=== PATIENT | female | born 1955 | race Caucasian/White ===

== ENCOUNTER → 2018-07-24 | Outpatient (CLI) | payer MEDICARE, OTHER ==
[2018-07-24 16:52] LABS: Potassium 4.6 mmol/L (3.5-5.1)
[2018-07-24 17:02] LABS: Basophils % (A) 0 %; Eosinophils # (A) 0.2 k/uL (0-0.7); Eosinophils % (A) 3 %; HCT 37.6 % (34.0-46.0); HGB 12.4 gm/dL (11.4-16.0); Lymphocytes # (A) 1.8 k/uL (1.0-4.8); Lymphocytes % (A) 33 %; MCH 28.1 pg (25.0-35.0); MCV 85.1 fL (80.0-100.0); Mean Platelet Volume 6.9; Monocytes # (A) 0.3 k/uL (0-1.0); Monocytes % (A) 6 %; Neutrophils % (A) 55 %; Platelet Count 209 k/uL (150-450); RBC 4.42 m/uL (3.80-5.40); RDW 13.8 % (11.5-15.5); WBC 5.4 k/uL (3.8-10.6)
== END | disposition home or self-care (01) ==
LOC: LABPAT 15:56
PROVIDERS: ATTEND Orthopaedic Surgery
DX: Z01.818 Encounter for other preprocedural examination (principal); Z01.812 Encounter for preprocedural laboratory examination; M23.91 Unspecified internal derangement of right knee
CPT/HCPCS: 36415; 80051; 85025; 93005

== ENCOUNTER → 2022-04-07 | Outpatient (CLI) | payer MEDICARE, OTHER ==
--- NOTE | 2022-04-07 11:09 | P.PAINPG ---
PQRS Measure Charge Sheet Comment: HISTORY OF PRESENT ILLNESS: 67 yr old female as a referral from Dr. Myers presents today with severe and chronic LBP secondary to DDD and facet arthropathy for evaluation. Pt states her pain level is 8 out of 10 in intensity, localized to the left aspect of her lower lumbar spine, constant, sharp, stabbing in character which is provoked with sitting for periods of 30 minutes or more. So radiates to the inner groin. Pain is relieved with medications (Tylenol), lidocaine patches, ice, heat, physical therapy 2 years ago, daily home stretching regimen, repositioning and rest. PMH: Asthma, GERD, Vitamin D Deficiency PSH: R Knee Meniscal Repair, R Extensor Tendon Repair SH: Hx of tobacco use, No ETOH abuse, No illicit drug use. Retired. FH: Mother- [place]. Father- CAD, NIDDM, [place]. All: See list Meds: See list REVIEW OF ORGAN SYSTEMS: CONSTITUTIONAL: No fevers or chills. No recent weight loss. NEUROLOGICAL: + numbness and tingling along the distal extremities. No seizure disorders or headaches. MUSCULOSKELETAL: + pain PSYCHIATRIC: Denies current depression or suicidal thoughts. Physical Examinations : Constitutional : Cooperative , not in acute distress . Neurologic : Cranial nerve II to XII intact. No focal neurological deficits. Psychiatric : alert & oriented x 3. Matching mood & appropriate affect. Judgment & insight intact. Musculoskeletal : Cervical Spine Motor strength in the deltoid and biceps: Normal right side. Normal Left side Motor strength biceps and the wrist extensors: Normal right side . Normal left side Motor strength in the triceps muscle: Normal right side. Normal left side Deep tendon reflexes: Normal at the biceps. Normal at Brachioradialis. Normal at triceps Vertebral body tenderness to deep palpation over Cervical facet loading test: positive bilaterally Spurling test: positive bilaterally Neck distraction test: positive bilaterally Kevin sign: positive bilaterally Lumbar spine Motor strength lower extremities ,thigh and legs 5/5 Right side , 5/5 Left side Deep tendon reflexes : Normal Knee Jerk. Normal Ankle Jerk Vertebral body tenderness over Lumbar facet Loading Test: positive Right / positive Left Range of motion of the lumbar spine Flexion 30 degrees, extension 10 degrees Straight Leg Raise test: Left/ Right positive at degree Monica test: positive right / positive left. Severe tenderness over the Sacroiliac joint on the Right / Left sides Gaenslen test: positive bilaterally Seated flexion test: positive bilaterally. Sacral spine : Severe tenderness over the Sacroiliac joint: right side / left side Range of motion: Flexion of the lumbar spine <60 degrees Range of motion: Extension of the lumbar spine <20 degrees Gaenslen's Test positive L Monica test: positive right side / left side +L Thigh Thrust Test Sacral Thrust Test- L side Imaging: MRI of the lumbar spine reviewed Assessment/ Plan : L Sacroiliitis Recommendation of L SI joint injection. May need a series of injections, up to every 3 mo , for optimal pain relief. Risks, benefits of procedure discussed and patient verbalized understanding. Denies aspirin or anti- coagulant use or medical history of diabetes. Protocol for discontinuation/ continuation of medications samuel procedure discussed. All questions answered. I have spent greater than 30 minutes on patient care today. Dr Prasad was available by phone for the evaluation of this patient. The time was used to review the medical records including relevant urine studies and Prescription history (MAPs), review of the available imaging, evaluation and examination of the patient, coordination of care with the medical staff and if applicable referring physicians, as well as creation of the medical record PQRS Narrative: Smoking Status Former smoker Home Medications: Ambulatory Orders Omeprazole 40 mg PO AC-BRKFST 08/20/14 Cyanocobalamin [Vitamin B-12] 1 applic IJ Q14D 11/18/14 Fluticasone Propion/Salmeterol [Advair 250-50 Diskus] 1 inhalation PO BID PRN 11/19/14 Pseudoephedrine HCl [Sudafed] 30 mg PO BID PRN 11/19/14 Acetaminophen [Tylenol] 162.5 mg PO BID PRN 08/14/18 Lorazepam(Dose Unknown) 1 tab SL DAILY PRN 08/14/18 Phentermine HCl [Adipex-P] 37.5 mg PO DAILY 08/14/18 Singulair(Dose Unknown) 1 tab PO HS PRN 08/14/18 Gabapentin [Neurontin] 300 mg PO DAILY 08/16/18 traMADol HCl [Ultram] 50 mg PO Q6H PRN #20 tab 08/16/18 Controlled Substance Measures - Controlled Substance Measures Is patient prescribed a controlled substance at discharge?: No
[2022-04-07 11:23] VITALS: BP 133/88; PULSE 79; RESP 18; TEMP 98.1
== END ==
LOC: PNWHC3 10:14
PROVIDERS: ATTEND Specialist
DX: M46.1 Sacroiliitis, not elsewhere classified (principal); M54.16 Radiculopathy, lumbar region; M25.552 Pain in left hip; J45.909 Unspecified asthma, uncomplicated; Z88.5 Allergy status to narcotic agent; Z88.6 Allergy status to analgesic agent; Z88.1 Allergy status to other antibiotic agents; Z88.8 Allergy status to other drugs, medicaments and biological substances; Z87.891 Personal history of nicotine dependence
CPT/HCPCS: 99211

== ENCOUNTER → 2022-05-19 | Day surgery (SDC) | payer MEDICARE, OTHER ==
[~2022-05-19] MED LIST: IOPAMIDOL M200 10 ML VIAL ONE; IV FLUID CONTINUATION 1,000 ML IV ONE; LACTATED RINGERS 1,000 ML IV SCH; LIDOCAINE 1% (10MG/ML) FOR IV START INTRADERMA PRN; MIDAZOLAM 2 MG/2 ML VIAL ONE; TRIAMCINOLONE ACETONIDE 40 MG/ML 1 ML VIAL ONE
[2022-05-19 10:06] VITALS: RESP 16; TEMP 97.7
--- NOTE | 2022-05-19 10:35 | P.PCN ---
Date of Procedure: 05/19/22 Description of Procedure: PREOPERATIVE DIAGNOSIS: Sacroiliac joint dysfunction POSTOPERATIVE DIAGNOSIS: Sacroiliac joint dysfunction. PROCEDURES: 1. Left side Sacroiliac joint steroid injection #1 out of 2 2. Sacroiliac joint arthrogram. SURGEON: Gurdeep Hilton ANESTHESIA: Local and IV sedation : Versed 2 mg. Sedation supervision start time : 1027 sedation Supervision end time: 1032 EBL: None. Specimen removed: None Fluoroscopic image: saved to electronic medical records. PROCEDURE INDICATIONS: This patient with a history of chronic low back pain, and sacroiliac joint dysfunction. Patient tried conservative therapy. Came here for intervention management. PROCEDURE DESCRIPTION: The patient was seen and identified in the preoperative area. Risks, benefits, complications, and alternatives were discussed with the patient. The patient agreed to proceed with the procedure and signed the consent. IV was started, and vital signs were stable. Patient was taken to the OR and time out was completed. The patient was placed in the prone position on procedure table and a pillow was placed under the abdomen to reduce lumbar lordosis. The lumbosacral area was prepped and draped in the usual sterile fashion. Critical pause was taken. Vital signs were closely monitored during the procedure. For the left side, the fluoroscopic camera was placed in right oblique view and left SI joint lower pole was identified. Skin entry point was infiltrated with 1% lidocaine and 22-gauge 3.5 inch spinal needle was introduced into the inferior one-third of SI joint and after penetrating into the joint arthrogram was done. 0.5 ml of Edicrd266 contrast was injected after negative aspiration for blood, and air and negative for paresthesia. Good spread of the contrast into the SI joint has been seen. Then again after negative aspiration of spinal fluid and blood and negative for neurological symptoms, 3 mL of a solution containing total 2 mL of 1% preservative-free lidocaine mixed with 40 mg of Kenalog was injected. Needle was withdrawn intact.. Needle was withdrawn intact. Skin was cleansed, and bandages were applied. COMPLICATIONS: None. DISPOSITION / PLANS: The patient was placed in a supine position and transferred to the recovery area in a stable condition for observation and was discharged from the recovery room after meeting discharge criteria. Home discharge instructions given to the patient by the staff. The patient was reexamined prior to discharge. The patient will schedule for follow-up visit with the pain clinic in 4 weeks duration.
--- NOTE | 2022-05-19 10:44 | FL ---
Intraoperative/procedural fluoroscopic services were provided. Total fluoroscopy time is 1 second wit h no submitted images to PACS. Please see the operative note for further details.
[2022-05-19 10:58] VITALS: BP 125/75; PULSE 76
== END ==
LOC: ORPAIN 08:55
DX: M46.1 Sacroiliitis, not elsewhere classified (principal); M54.16 Radiculopathy, lumbar region; M25.552 Pain in left hip; M19.90 Unspecified osteoarthritis, unspecified site; J45.909 Unspecified asthma, uncomplicated; F41.9 Anxiety disorder, unspecified; Z88.1 Allergy status to other antibiotic agents; Z88.5 Allergy status to narcotic agent; Z88.8 Allergy status to other drugs, medicaments and biological substances
CPT/HCPCS: G0260; Q9966; J2250; J3301; 27096

== ENCOUNTER → 2022-06-22 | Outpatient (CLI) | payer MEDICARE, OTHER ==
[2022-06-22 12:42] VITALS: BP 159/85; PULSE 76; RESP 18
--- NOTE | 2022-06-22 14:11 | P.PAINPG ---
Objective - Vital Signs Vital signs: Intake & Output 06/21/22 06/22/22 06/22/22 18:59 06:59 18:59 Weight 75.75 kg PQRS Measure Charge Sheet Comment: A 67 yr old female with a history of severe and chronic low back pain secondary to lumbar degenerative disc diseases and lumbar spondylosis with facet arthropathy without myelopathy presents today for evaluation s/p L SI injection. Pt states she experienced 80% pain relief x 2 days s/p procedure. Pain level is currently at 9/10 in intensity, constant, localized in L groin, pulling/grinding in character w shooting towards L glute. Pain is provoked by sitting for periods of 20 min or more. Pain is alleviated with PT x 6 wks in 2020, laying supine w LEs elevated, topicals, repositioning and rest. Interventional pain procedures completed include L SI injection Patient is currently on DENIES Patient denies any side effects of the medication(s), denies excessive drowsiness or sleepiness, denies suicidal ideation and reports that the current pain medication is helping to control the pain and improve activities of daily living. Patient denies any motor or sensory deficits. Patient denies any fever or night sweats, denies any change in the bowel movements or urination. Physical Examination: -Constitutional: Cooperative. Not in acute distress . - Neurologic: Cranial nerve II to XII intact. No focal neurological deficits. - Psychatric: Alert & oriented x 3. Matching mood & appropriate affect. Judgme nt and insight intact. - Musculoskeletal: Cervical spine: Muscle bulk/ tone/ strength in the bilateral upper extremities normal Vertebral body tenderness to palpation over Spurling test positive Distraction test positive Facet loading test positive Thoracic spine Muscle bulk / tone/ strength in the bilateral paraspinal muscles normal Vertebral body tender to palpation over Facet loading test positive Lumbar spine: +L [place] Motor bulk/ tone/ strength lower extremities , thigh and legs : 5/5 Deep tendon reflexes : Normal Knee Jerk. Normal Ankle Jerk . Vertebral body tenderness to palpation over Lumbar Facet Loading Test positive Straight Leg Raise: positive at 30 degrees right side/ left side Gaenslen's Test positive Sacral spine : Severe tenderness over the Sacroiliac joint: right side / left side Range of motion: Flexion of the lumbar spine <60 degrees Range of motion: Extension of the lumbar spine <20 degrees Gaenslen's Test positive Mohan's Test positive Monica test: positive right side / left side Thigh Thrust Test Sacral Thrust Test Assessment and plan: Chronic low back pain secondary to lumbar degenerative disc disease , lumbar spondylosis with facet arthropathy without myelopathy Recommendation of following up w Dr Acuna. She has an appt with the orthopedic surgeon tomorrow. May return to this clinic on an as needed basis. Risks, benefits of procedure discussed and pt verbalized understanding. Denies anticoagulant use or medical history of diabetes. All patient questions answered I have spent less than 30 minutes on patient care today. Dr Prasad was available by phone for the evaluation of this patient. The time was used to review the medical records including relevant urine studies and Prescription history (MAPs), review of the available imaging, evaluation and examination of the patient, coordination of care with the medical staff and if applicable referring physicians, as well as creation of the medical record - Pain Location Left Groin Non-Pharmacological Interventions: Heat, Home Exercise, Ice, Physical Therapy, Stretching Pharmacological Interventions: Topical Medication PQRS Narrative: Smoking Status Former smoker Pain Intensity [Left Groin] 8 Scale Used Numeric (1 - 10) Hx Alcohol Use (MH) No Home Medications: Ambulatory Orders Omeprazole 40 mg PO AC-BRKFST 08/20/14 Cyanocobalamin [Vitamin B-12] 1 applic IJ Q14D 11/18/14 Fluticasone Propion/Salmeterol [Advair 250-50 Diskus] 1 inhalation PO BID PRN 11/19/14 Pseudoephedrine HCl [Sudafed] 30 mg PO BID PRN 11/19/14 Acetaminophen [Tylenol] 250 - 500 mg PO BID PRN 08/14/18 Gabapentin [Neurontin] 300 mg PO HS 08/16/18 Ergocalciferol [Vitamin D2 (1250 Mcg = 52808 Iu)] 1,250 mcg PO Q14D 06/21/22 LORazepam [Ativan] 0.5 mg PO DAILY PRN 06/21/22 Montelukast [Singulair] 10 mg PO HS 06/21/22 Controlled Substance Measures - Controlled Substance Measures Is patient prescribed a controlled substance at discharge?: No
== END ==
LOC: PNWHC3 12:07
PROVIDERS: ATTEND Specialist
DX: M47.816 Spondylosis without myelopathy or radiculopathy, lumbar region (principal); M51.36 Other intervertebral disc degeneration, lumbar region; G89.29 Other chronic pain; Z87.891 Personal history of nicotine dependence; Z88.5 Allergy status to narcotic agent; Z88.6 Allergy status to analgesic agent; Z88.8 Allergy status to other drugs, medicaments and biological substances
CPT/HCPCS: 99211

== ENCOUNTER → 2022-08-08 | Outpatient (CLI) | payer MEDICARE, OTHER ==
[2022-08-08 14:10] LABS: African American GFR (CKD) >90 (>60 ml/min/1.73 sqM); Blood Urea Nitrogen 13 mg/dL (7-17); Non-African American GFR(CKD) 88 (>60 ml/min/1.73 sqM)
--- NOTE | 2022-08-08 15:38 | CT ---
EXAMINATION TYPE: CT pelvis w con CT DLP: 669 mGycm, Automated exposure control for dose reduction was used. DATE OF EXAM: 08/08/2022 3:32 PM COMPARISON: None CLINICAL INDICATION:Female, 67 years old with history of M99.85 L pelvic lesion; c/o left groin pain TECHNIQUE: Axial CT of the pelvis. Sagittal and coronal reformats were created on a separate worksta tion. Contrast used:100 mL of Isovue 300 with IV Contrast, Oral contrast used: with Oral Contrast FINDINGS: BLADDER: Unremarkable REPRODUCTIVE: The uterus is surgically absent. STOMACH AND BOWEL: No evidence of bowel obstruction. Scattered colonic diverticula present. PERITONEUM: No evidence of pneumoperitoneum or free fluid. VASCULATURE: No evidence of aortic aneurysm. MUSCULOSKELETAL: No acute osseous abnormalities, visualized osseous structures appear intact. Mild de generation changes are noted. Postsurgical changes right iliac bone partially visualized streak artif act from fixation hardware in the spine out of the [id number]. Degeneration changes of the pubic s ymphysis. LYMPH NODES: No gross evidence for lymphadenopathy. SOFT TISSUE/ABDOMINAL WALL: No evidence of hernia. IMPRESSION: 1. No evidence for acute pelvic process. No acute osseous pathology. No evidence of hernia. 2. Colonic diverticulosis.
== END | disposition home or self-care (01) ==
LOC: RADCTMAIN 13:31
PROVIDERS: ATTEND Orthopaedic Surgery
DX: K57.30 Diverticulosis of large intestine without perforation or abscess without bleeding (principal); M99.85 Other biomechanical lesions of pelvic region
CPT/HCPCS: 82565; 84520; 72193; 36415; Q9967

== ENCOUNTER → 2022-08-17 | Outpatient (CLI) | payer MEDICARE, OTHER ==
[2022-08-17 18:59] LABS: Basophils # (A) 0.05 X 10*3/uL (0.00-0.10); Basophils % (A) 0.8 %; Eosinophils # (A) 0.16 X 10*3/uL (0.04-0.35); Eosinophils % (A) 2.7 %; HCT 42.9 % (37.2-46.3); HGB 12.8 g/dL (12.0-15.0); Immature Grans, Automated 1.2 %; Lymphocytes % (A) 32.2 %; MCHC 29.8 g/dL (32.0-37.0); MCV 90.5 fL (80.0-97.0); Mean Platelet Volume 10.8 fL (9.5-12.2); Monocytes # (A) 0.51 X 10*3/uL (0.20-1.00); Monocytes % (A) 8.6 %; NRBC Per 100 WBC 0 /100 WBCS (0.0-0.0); Neutrophils # (A) 3.21 X 10*3/uL (1.80-7.70); Neutrophils % (A) 54.5 %; Platelet Count 235 X 10*3/uL (140-440); RBC 4.74 X 10*6/uL (4.10-5.20); RDW 14.9 % (11.5-14.5)
[2022-08-17 19:16] LABS: Erythrocyte Sedimentation Rate 9 mm/Hr (0-30)
[2022-08-17 20:56] LABS: Rheumatoid Factor, Qnt <10 IU/mL (0-15); Uric Acid 5.4 mg/dL (2.9-7.7)
[2022-08-17 21:48] LABS: DNA Double-Stranded NEGATIVE (NEGATIVE)
[2022-08-18 13:13] LABS: HLA B27 NEGATIVE
== END | disposition home or self-care (01) ==
LOC: LABWHC1 10:38
PROVIDERS: ATTEND Orthopaedic Surgery
DX: M25.50 Pain in unspecified joint (principal)
CPT/HCPCS: 36415; 84550; 85025; 85652; 86038; 86140; 86225; 86431; 86812

== ENCOUNTER → 2022-08-30 | Outpatient (CLI) | payer MEDICARE, OTHER ==
--- NOTE | 2022-08-30 14:37 | CT ---
EXAMINATION TYPE: CT abdomen pelvis wo con DATE OF EXAM: 08/30/2022 HISTORY: Abdominal pain, hx renal stones. CT DLP: 691.10 mGycm. Automated Exposure Control for Dose Reduction was Utilized. TECHNIQUE: CT scan of the abdomen and pelvis is performed without oral or IV contrast. COMPARISON: Prior pelvic CTs August 08, 2022 FINDINGS: Within the limitations of a non-contrast study, the following observations are made. LUNG BASES: No significant abnormality is appreciated. LIVER/GB: Cholecystectomy clips are present. PANCREAS: No significant abnormality is seen. SPLEEN: No significant abnormality is seen. ADRENALS: No significant abnormality is seen. KIDNEYS: No renal stones or hydronephrosis is seen bilaterally. Bladder is poorly distended without i ntraluminal calculus. BOWEL: Sigmoid colonic diverticula. No CT evidence for acute diverticulitis. No suspicious small or l arge bowel dilatation. GENITAL ORGANS: Uterus surgically absent. LYMPH NODES: No greater than 1cm abdominal or pelvic lymph nodes are appreciated. OSSEOUS STRUCTURES: Long segment fusion hardware causes streak artifact making evaluation slightly oscar boptimal extending inferiorly to L3 level. Reversal of normal curvature centered at the thoracolumbar junction where there is marked disc space narrowing T12-L1 level and moderate chronic compression ty pe fracture of the L1 vertebra. Left-sided step-off noted on coronal images. Facet arthropathy lower lumbar levels is seen. OTHER: No significant additional abnormality is seen. IMPRESSION: No renal stones or hydronephrosis is seen bilaterally. No acute findings are evident.
== END | disposition home or self-care (01) ==
LOC: RADCTMAIN 13:02
PROVIDERS: ATTEND Urology
DX: N20.0 Calculus of kidney (principal)
CPT/HCPCS: 74176

== ENCOUNTER → 2024-12-03 | Outpatient (CLI) | payer MEDICARE, OTHER, SELFPAY | END | disposition home or self-care (01) | LOC: LABWHC1 08:08 | PROVIDERS: ATTEND Ophthalmology | DX: M31.6 Other giant cell arteritis (principal) | CPT/HCPCS: 36415; 85652; 86140 ==